=== PATIENT | male | born 1975 | race Caucasian/White ===

== ENCOUNTER 2023-05-21 15:16 | Emergency (ER) | payer BC ==
[2023-05-21] MEDS ORDERED: HYDROmorphone 1 MG/ML Syringe IVPUSH ONE (18:13)
[2023-05-21 18:24] LABS: BASOPHILS ABSOLUTE AUTO 0.03 K/mm3 (0.01-0.08); BASOPHILS PERCENT AUTO 0.2 % (0.1-1.2); EOSINOPHILS PERCENT AUTO 0.7 (0.8-7.0); HEMATOCRIT 46.6 % (40.1-51.0); HEMOGLOBIN 16.1 gm/dl (13.7-17.5); IMMATURE GRAN ABSOLUTE AUTO 0.06 K/mm3 (0.00-0.10); IMMATURE GRAN PERCENT AUTO 0.4 % (<=1.0); LYMPHOCYTES ABSOLUTE AUTO 2.15 K/mm3 (1.32-3.57); LYMPHOCYTES PERCENT AUTO 14.4 % (21.8-53.1); MEAN CORPUSCULAR HEMOGLOBIN 31.1 pg (25.7-32.2); MEAN CORPUSCULAR HGB CONC 34.5 g/dl (32.2-35.5); MEAN CORPUSCULAR VOLUME 90.1 fl (79.0-92.2); MEAN PLATELET VOLUME 9.3 fl (9.4-12.3); MONOCYTES ABSOLUTE AUTO 1.02 K/mm3 (0.30-0.82); MONOCYTES PERCENT AUTO 6.8 % (5.3-12.2); NEUTROPHILS ABSOLUTE AUTO 11.61 K/mm3 (1.78-5.38); NEUTROPHILS PERCENT AUTO 77.5 % (34.0-67.9); PLATELET COUNT,PLT 265 K/mm3 (163-337); RED BLOOD CELL COUNT 5.17 M/mm3 (4.63-6.08); WHITE BLOOD CELL COUNT,WBC 14.97 K/mm3 (4.23-9.07)
[2023-05-21] MEDS ORDERED: Ondansetron 4 MG/2 ML SDV IVPUSH ONE (18:45)
[2023-05-21 19:30] LABS: LACTIC ACID 1.1 mmol/L (0.4-2.0)
[2023-05-21 19:39] LABS: ALANINE AMINOTRANSFERASE,ALT 48 U/L (16-63); ALBUMIN 3.9 g/dl (3.4-5.0); ALKALINE PHOSPHATASE 79 U/L (46-116); ANION GAP 16.4 (5-15); ASPARTATE AMNIOTRANSFERASE,AST 32 U/L (15-37); BILIRUBIN TOTAL 1.1 mg/dL (0.2-1.0); BLOOD UREA NITROGEN,BUN 13 mg/dL (7-18); BUN/CREATININE RATIO 10.8 (14-18); CARBON DIOXIDE,CO2 25 mEq/L (21-32); CHLORIDE,CL 100 mEq/L (98-107); CREATININE 1.2 mg/dL (0.7-1.3); ESTIMATED GFR 74 mL/min (>60); GLUCOSE RANDOM 101 mg/dL (70-99); PROTEIN TOTAL,TP 7.8 g/dl (6.4-8.2); SODIUM,NA 137 mEq/L (136-145)
[2023-05-21] MEDS ORDERED: Doxycycline Monohydrate 100 MG Cap PO ONE (19:44)
[2023-05-21 19:48] LABS: POTASSIUM,K 4.4 mEq/L (3.5-5.1)
[2023-05-21] MEDS ORDERED: Ketorolac 30 MG/ML SDV IVPUSH ONE (19:54)
[2023-05-21] MEDS ORDERED: Acetaminophen/oxyCODONE 325-5 MG Tab PO ONE (19:54)
[2023-05-21] MEDS ORDERED: Ketorolac 60 MG/2 ML SDV IM ONE (19:55)
== END 2023-05-21 20:26 | disposition home or self-care (01) ==
LOC: JD.ED 15:16
DX: L73.8 Other specified follicular disorders (principal); Z88.5 Allergy status to narcotic agent
CPT/HCPCS: 36415; 71045; 80053; 83605; 85025; 86140; 93005; 96372; 96374; 99284; A9270; J1885; J2405; 93010